=== PATIENT | female | born 1995 | race Caucasian/White ===

== ENCOUNTER 2025-04-17 19:29 | Emergency (ER) | payer MEDICAID ==
[~2025-04-17] VITALS: Ht 154.9 cm; Wt 54.4 kg
[2025-04-17 20:23] VITALS: BP 113/76; TEMP 98.2; O2SAT 98
[2025-04-17] MEDS ORDERED: HYDR28.32 TP (21:13)
[2025-04-17] MEDS ORDERED: HYDR-500 PO (21:13)
== END 2025-04-17 21:42 | disposition home or self-care (01) ==
LOC: ER 19:33
DX: M99.86 Other biomechanical lesions of lower extremity (principal); R21 Rash and other nonspecific skin eruption; W57.XXXA Bitten or stung by nonvenomous insect and other nonvenomous arthropods, initial encounter; Y93.89 Activity, other specified; Y92.89 Other specified places as the place of occurrence of the external cause; Y99.8 Other external cause status

== ENCOUNTER 2025-05-22 19:28 | Emergency (ER) | payer MEDICAID ==
[~2025-05-22 19:28] MED LIST: HYDR-500 PO; HYDR28.32 TP
== END 2025-05-22 22:08 | disposition left against medical advice (07) ==
LOC: ER 19:33
DX: R39.198 Other difficulties with micturition (principal); Z53.21 Procedure and treatment not carried out due to patient leaving prior to being seen by health care provider